=== PATIENT | female | born 1995 | race Caucasian/White ===

== ENCOUNTER → 2023-11-23 | Outpatient (CLI) | payer OTHER ==
--- NOTE | 2023-11-23 14:40 | P.SLEEP ---
History of Present Illness DATE: 11/23/2023 CONSULTATION/NEW PATIENT EVALUATION HISTORY OF PRESENT ILLNESS/SLEEP-WAKE EVALUATION: 28-year-old lady had been e valuated in the sleep center for possible obstructive sleep apnea hypopnea syndrome. SLEEP SCHEDULE: Usually sleep schedule from 2 AM until 11 AM most to 7 days a week. FALLING ASLEEP: No significant problems with falling asleep. DURING SLEEP: Patient snores and wakes up from sleep 2 times with episodes of palpitations, sleep talking, grinding teeth and restless legs. Positive history of movements during the sleep. No history of hypnogogical hallucinations, sleep paralysis, or cataplexy. DURING THE DAY/WAKE STATE: Patient has problems with memory, irritability, claustrophobia. [place] sleepiness scale is 3. Patient may take naps around 2 PM. PAST MEDICAL HISTORY: Hypothyroidism, anxiety, depression, fibromyalgia, bronchitis, asthma. PAST SURGICAL HISTORY: Cyst removed 2018. MEDICATIONS: Paroxetine 30 mg once a day, bupropion 300 mg once a day, levothyroxine 112 g once a day, albuterol as needed. SOCIAL HISTORY: Negative for smoking or using alcohol. FAMILY HISTORY: Hypertension, heart problems, stroke, cancer, diabetes. REVIEW OF SYSTEMS: Snoring, awakenings from sleep. No fevers. No double vision. No recent chest pain. No shortness of breath. No abdominal pain. No bleeding episodes. No blood in urine. No seizure episodes. PHYSICAL EXAMINATION: GENERAL: A pleasant patient without any distress. VITAL SIGNS: BP 131/84 , HR 83 , RR 12 , weight 290.6 pounds, height 5 foot 6-1/4 inches, body mass index 46.5 . HEENT: PERRLA, EOMI. Evaluation of oropharynx showed tongue protrudes midline, low position of soft palate Mallampati 34. NECK: Supple. No JVD. Thyroid is not palpable. 17.5 inches in circumference. LUNGS: Clear to percussion and to auscultation. Good air exchange. No wheezing or rhonchi. HEART: S1, S2 regular. No murmurs, gallops or rubs. ABDOMEN: Soft and nontender. Bowel sounds are present. No organomegaly appreciated. EXTREMITIES: No clubbing or cyanosis. GUEST RELATIONS REPRESENTATIVE: Awake, alert, and oriented x3. Cranial nerves 2 to 7 intact. There is no fasciculation or atrophy noted. No focal deficits observed. ASSESSMENT: 1. Loud snoring, awakenings from sleep, extremely low position of soft palate, wide neck 17.5 inches in circumference. Obstructive sleep apnea hypopnea syndrome. 2. Obesity, BMI 46.5. 3. History of depression. 4. History of anxiety. 5 history of episodes of sleep walking. 6 . Hypothyroidism. 7. Fibromyalgia. 8. Asthma. 9 . Sleep delay syndrome. PLAN: 1. Polysomnography for evaluation of patient's breathing during sleep. 2. CPAP/BiPAP titration if sleep study confirms obstructive sleep apnea- hypopnea syndrome. 3. Preferable position during sleep on the side. 4. No driving if patient feels any sleepiness. Patient is aware of civil and criminal liability for unsafe driving. 5. Sleep hygiene with regular sleep time for at least 7.5-8 hours. 6. Watching and losing weight. 7. Exposure to sunlight in the morning, awakenings and is less as possible bright light in the evening is able to move sleep cycle to earlier time. Thank you very much for referring this patient for consultation. Sincerely, Nabeel Cuellar MD, PhD, FAASM. Diplomat of [place] [employer], Sleep Medicine Board by [place] [employer] [employer] Server [facility] [place] Sleep Note - Sleep Note Sleep Note: Temperature: Pulse Rate: Respiratory Rate: Blood Pressure: SpO2: Height: Weight: BMI: Neck Circumference:
== END ==
LOC: 3 N SLEEP 14:05
PROVIDERS: ATTEND Internal Medicine
DX: G47.33 Obstructive sleep apnea (adult) (pediatric) (principal); E66.9 Obesity, unspecified; F32.A Depression, unspecified; F41.9 Anxiety disorder, unspecified; F51.3 Sleepwalking [somnambulism]; E03.9 Hypothyroidism, unspecified; M79.7 Fibromyalgia; J45.909 Unspecified asthma, uncomplicated; R06.83 Snoring; G47.21 Circadian rhythm sleep disorder, delayed sleep phase type; Z68.42 Body mass index [BMI] 45.0-49.9, adult; Z99.89 Dependence on other enabling machines and devices
CPT/HCPCS: 99202

== ENCOUNTER 2024-01-08 19:37 | Outpatient (CLI) | payer OTHER ==
--- NOTE | 2024-01-11 13:32 | P.PCN ---
Description of Procedure: POLYSOMNOGRAPHY REPORT PROCEDURE(S)/DATE(S): Polysomnography 01/08/2024 CLINICAL: Patient has been seen in the sleep center for evaluation of obstructive sleep apnea-hypopnea syndrome. Please see my consultation. Sleep study has been done for evaluation of patient breathing during the sleep. PROCEDURE: The standard montage for clinical polysomnography included the electroencephalogram, the electrooculogram, the mentalis surface electromyography and Lead II cardiography. The respiratory battery consisted of measurements of nasal/buccal air flow, pressure transducer measurements from nose, thoracic and/or abdominal effort and intercostal surface electromyography. Video monitoring has been done to check for any parasomnia events. Nocturnal oxyhemoglobin saturations were obtained by finger oximetry. Step-peña titration with positive airway pressure was utilized to control the respiratory events, if necessary. RESULTS: During the diagnostic sleep study sleep efficiency was slightly decreased to 85.1%. Latency to sleep onset was significantly prolonged to 57.0 min. Sleep architecture showed stage NI was short 1.5%, Delta sleep was in high range 21.9%, REM sleep was significantly increased to 36.2%. Respiratory channel showed 1 obstructive apneas, 1 mixed apneas, 0 central apneas, 141 hypopneas with lowest oxygen level 84%. Total apnea hypopnea index was 26.0. Heart rate was in the range between 78 and 93, average 85. EMG showed 18.9 periodic limb movements per hour with 0 micro-arousals per hour. IMPRESSIONS: 1. Moderate close to severe obstructive sleep apnea hypopnea syndrome. 2. Periodic limb movements have been documented. Please see other impressions from consultation PLAN: 1. The patient will have PAP titration for correction of respiratory abnormalities during the sleep. 2. Losing weight program. 3. Sleep hygiene with regular time in bed for at least 7-1/2 hours. 4. No driving if feeling sleepiness. 5. Please check iron profile including ferritin level. Low level of iron may increase the risk for periodic limb movements. Thank you very much for allowing me to participate in the management of your patient. Sincerely, Nabeel Cuellar MD, PhD, FAASM. Diplomat of [place] [employer], Sleep Medicine Board by [place] [employer] Photo [employer]ographer of [facility] [place]
== END 2024-01-09 05:32 | disposition home or self-care (01) ==
LOC: 3 N SLEEP 19:37
PROVIDERS: ATTEND Internal Medicine
DX: G47.33 Obstructive sleep apnea (adult) (pediatric) (principal); G47.61 Periodic limb movement disorder
CPT/HCPCS: 95810

== ENCOUNTER 2024-06-06 19:42 | Outpatient (CLI) | payer OTHER ==
--- NOTE | 2024-06-07 13:24 | P.PCN ---
Description of Procedure: CLINICAL: Titration with positive air pressure has been done for correction of respiratory abnormalities during sleep. DESCRIPTION OF PROCEDURE: The standard montage for clinical polysomnography included the electroencephalogram, the electrocardiogram, the mentalis surface electromyography and Lead II cardiography. The respiratory battery consisted of measurements of nasal /buccal air flow, pressure transducer measurements from the nose, thoracic and /or abdominal effort and intercostal surface electromyography. Video monitoring has been done to check for any parasomnia events. Nocturnal oxyhemoglobin saturations were obtained by finger oximetry. Step-peña titration with positive airway pressure was utilized to control respiratory events. Raw data of sleep recording has been reviewed and is adequate. RESULTS: Sleep efficiency was normal 90.3%. Latency to sleep onset was normal 20.0 minutes.]. Sleep architecture showed stage N1 was slightly decreased to 3.8%, Delta sleep was normal at 15.6%, REM sleep was decreased to 15.6%. Heart rate was minimum 68 BPM, maximum 79 BPM, average 73 BPM. EMG showed 21.4 periodic limb movements per hour with 0.4 micriarousals per hour. PAP titration have been done with CPAP up to the pressure 9 cm H2O. The best results were at the pressure 8 cm H2O. Apnea hypopnea index reduced to 0.8. IMPRESSION: 1. Obstructive sleep apnea hypopnea syndrome on controle with PAP treatment. 2. Periodic limb movements have been documented. Please see other impressions from consultation. PLAN: 1. The patient will have treatment with positive air pressure equipment with the level of pressure AutoPap 5-9 cm H2O and should use it every night for the whole night. 2. Watching and losing weight. 3. Sleep hygiene with regular time in bed for at least 8 hours. 4. No driving if feeling any sleepiness. 5. I will see the patient for follow up visit to explain the results of the test, recommendations, check compliance with treatment and make any necessary adjustment related to mask fitting, pressure and humidification. 6. Please check iron profile including ferritin level. Low level of iron may increase risk for periodic limb movements Thank you very much for allowing me to participate in the management of your patient. Sincerely, Nabeel Cuellar MD, PhD, FAASM Diplomat of [employer] Sleep Medicine Board of [employer] Service [employer] [facility] [place] cc: Evelia Roberts MD
== END 2024-06-07 05:38 | disposition home or self-care (01) ==
LOC: 3 N SLEEP 19:42
PROVIDERS: ATTEND Internal Medicine
CPT/HCPCS: 95811